=== PATIENT | female | born 1975 | race Caucasian/White ===

== ENCOUNTER 2025-03-09 02:08 | Inpatient (IN) | payer OTHER, SELFPAY ==
[2025-03-08] VITALS (7 sets, daily range): BP systolic 107–154; BP diastolic 70–99; BMI 23.2
[2025-03-08 18:12] LABS: Urine Albumin Negative (Neg - Trace); Urine Bilirubin Negative (Negative); Urine Character Clear (Clear); Urine Color Yellow; Urine Glucose Negative (Negative); Urine Ketone 2+ (Negative); Urine Leukocyte Negative (Negative); Urine Nitrite Negative (Negative); Urine Occult Blood 4+ (Negative); Urine Urobilinogen Negative (Neg - 1+)
[2025-03-08 18:30] LABS: Urine Bacteria Moderate (Negative); Urine Red Blood Cell 0-2 /HPF (0-2)
[2025-03-08 19:05] LABS: % Basophils 0.3 % (0-2); % Immature Granulocytes 0.3 % (0-0.5); % Lymphocytes 16.1 % (20.5-51.1); % Monocytes 6.2 % (1.7-9.3); % Neutrophils 77.1 % (42.2-75.2); Absolute Lymphocytes 1.7 10^3/uL (1.2-3.4); Absolute Monocytes 0.7 10^3/uL (0.1-0.6); Absolute Neutrophils 8.2 10^3/uL (1.4-6.5); Hematocrit 39.7 % (37.0-47.0); Hemoglobin 13.2 g/dL (12.0-16.0); Mean Corp Hgb Conc. 33.2 g/dL (33.0-37.0); Mean Corpuscular Hgb 27.1 pg (27.0-31.0); Mean Corpuscular Volume 81.5 fL (81.0-99.0); Mean Platelet Volume 8.2 fL (7.4-10.4); Nucleated Red Blood Cells % 0 %; Platelet Count 397 10^3/uL (130-400); Red Blood Cell Count 4.87 10^6/uL (4.20-5.40); Red Cell Dist. Width 12.5 % (11.5-14.5); White Blood Cell Count 10.7 10^3/uL (4.8-10.8)
[2025-03-08 19:14] LABS: Erythrocyte Sed Rate 19 mm/hour (0-20); HCG, Serum Qualitative Screen Negative
[2025-03-08 19:16] LABS: Lactic Acid 0.7 mmol/L (0.7-2.0)
[2025-03-08 19:24] LABS: ALT (SGPT) 34 U/L (0-35); AST (SGOT) 26 U/L (14-36); Albumin 3.8 g/dl (3.5-5.0); Alkaline Phosphatase 75 U/L (38-126); Blood Urea Nitrogen 8 mg/dl (7-17); Calcium 9.3 mg/dl (8.4-10.2); Carbon Dioxide 26 mmol/L (22-30); Chloride 107 mmol/L (98-107); Glucose 95 mg/dl (70-99); Lipase 75 U/L (23-300); Sodium 139 mmol/L (135-145); Total Bilirubin 0.3 mg/dl (0.2-1.3); Total Protein 6.9 g/dl (6.3-8.2); eGFR > 60.00
[2025-03-08] MEDS: ZOFRAN 4 MG IV (19:29)
[2025-03-08] MEDS: NSS 1000 IV (19:29)
--- NOTE | 2025-03-08 20:21 | ED.GENMED ---
History of Present Illness
General
Chief Complaint: Abdominal Pain
Source: patient
Exam Limitations: none
Time Seen by Provider: 03/08/25 18:42
Nursing documentation reviewed up to this point in time: agreed with
History of Present Illness
History of Present Illness:
Patient is a 49-year-old female with history of Crohn's disease presenting to the emergency department for evaluation of upper abdominal pain and nausea. Patient reports recent Crohn's flare starting back in December. She was started on 40 mg of
prednisone which she stopped at the end of January. Starting about 1 week ago she describes a bloating sensation in her upper abdomen and intermittent nausea. Today�she reports significant nausea after drinking any liquids prompting visit to the
emergency department.
Patient denies any fevers or vomiting. She has had some intermittent loose stools though denies any bloody stools. She denies any lower abdominal discomfort. She denies any urinary symptoms. She has absolutely no chest pain or shortness of
breath. No lightheadedness/dizziness.
Patient reports approximately once every 2 years she has a Crohn's flare however this feels different than typical flares. She has been taking Skyrizi recently although is currently planning a medication adjustment.
Patient receives the majority of her GI care through [facility]. She did recently see a new GI specialist for second opinion.
She had a right sided colectomy many years ago at [facility]. She has a remote history of an appendectomy and cholecystectomy.
Past History
Past History
ED Past Medical History: Other (gallstone, ulcerative colitis)
ED Past Surgical History: None
Social History
Tobacco: Non-smoker
Alcohol: None
Drug: None
Living: with family
Review of Systems
Review of Systems
Allergies reviewed?: Yes
All Other Systems: ROS reviewed and negative except as documented in HPI and ROS
Phy Exam
Physical Exam
Physical Exam:
Vitals: Patient's vital signs are stable. Afebrile
General: Patient is well appearing, no acute distress. Nontoxic appearing
Skin: Warm and dry, no rashes or lesions
Head: Normocephalic, atraumatic
Eyes: Sclera nonicteric. EOMs intact. No nystagmus.
Throat: Protecting airway
Neck: Normal ROM, no cervical spine tenderness, no meningismus
Cardiac: Regular rate and rhythm, no murmurs.
Pulm: Normal respiratory effort, no wheezes, rales, rhonchi heard on exam
.
Abdomen: Abdomen soft. Mild tenderness in epigastric region without rebound tenderness or guarding. Negative Ashley sign. No reproducible tenderness in lower abdomen.
Extremities: No evidence of cyanosis or edema. Palpable DP pulses bilaterally
Neuro: AAOx3. Grossly intact.
Psychiatric: Normal affect.
Course
Orders/Labs/Results
Orders:
Orders
03/08/25 17:53
Test Result ONCE
03/08/25 18:05
Urine Culture Reflexed from UA [Urinalysis Reflex To Culture] Urgent
Date Specimen was Collected: 03/08/25
Time Specimen was Collected: 17:53
Urine Microscopic Reflex Cult Urgent
Urine Culture Urgent
JEREMIAS Source: U
Specimen Description:
Date Specimen was Collected: 03/08/25
Time Specimen was Collected: 17:53
03/08/25 18:56
C-Reactive Protein Urgent
Complete Blood Count/With Diff Urgent
Comprehensive Metabolic Panel Urgent
Erythrocyte Sed Rate Urgent
HCG, Serum Qualitative Screen Urgent
Lactic Acid Urgent
Lipase Urgent
03/08/25 19:14
0.9% Sodium Chloride 1000 ml [Nss] 1,000 ml IV BOLUS
Ondansetron Injectable [Zofran] 4 mg IV NOW STA
03/08/25 20:21
Acetaminophen [Tylenol] 650 mg PO NOW STA
Mag Hydrox/Al Hydrox/Simeth [Maalox] 30 ml Phenobarb/Hyoscy/Atropine/Scop [] 10 ml Viscous Lidocaine 2% [Xylocaine Viscous Cup] 10 ml PO NOW
03/08/25 20:27
CT Abd/pel W Iv And Oral Contr Urgent
Comment: hx R colectomy
Reason For Exam: Upper abdominal pain, bloating, nausea
Iohexol [Omnipaque] See Protocol PO NOW STA
03/08/25 20:35
Mag Hydrox/Al Hydrox/Simeth [Maalox] 30 ml .ROUTE .STK-MED ONE
Phenobarb/Hyoscy/Atropine/Scop [] 10 ml .ROUTE .STK-MED ONE
Viscous Lidocaine 2% [Xylocaine Viscous Cup] 15 ml .ROUTE .STK-MED ONE
03/08/25 23:51
PTT Urgent
03/09/25 00:02
Heparin 5,400 units IV NOW STA
Nursing to Place Non Medication Order As Directed
Physician Order: PTT 6 hours after initial start of Heparin infusion
Above order entered?: Yes
03/09/25 00:15
Heparin [id number] Units/250 ml 25,000 units in 250 ml IV PER PROTOCOL
Weight to be used for heparin protocol in kilograms (kg):: 67.2
Protocol:: DVT/PE
PTT Goal Range to be used:: PTT 73 to 111 seconds
Order type:: Initial
INITIAL Infusion Dose (UNITS/KG/hr) & then follow protocol:: 18 units/kg/hr
Infusion Dose in UNITS/hr & then follow protocol (UNITS/hr):: 1,200
INFUSION RATE in mL/hr & then follow protocol (mL/hr):: 12
For DVT/PE algorithm, re-bolus for low PTT?: Yes
PTT less than or equal to 64 seconds:: Re-bolus 80 units/kg (max 10,000units). Increase by 300 units/hr
(+ 3mL/hr)
PTT 64.1 to 72.9 seconds:: Re-bolus 40 units/kg (max 5,000 units). Increase by 100 units/hr
(+ 1mL/hr)
PTT 73 to 111 seconds:: Target Range. No change in rate.
PTT 111.1 to 130.9 seconds:: Decrease rate by 100 units/hr (- 1 mL/hr)
PTT 131 to 199.9 seconds:: HOLD for 1 hr. Then decrease by 200 units/hr (- 2mL/hr)
PTT greater than or equal to 200 seconds:: HOLD for 2 hrs & Notify Provider. Then decrease by 300 units/hr
(- 3mL/hr)
Lab follow-up:: Each change, PTT q6h until 2 consecutive are therapeutic. Then
PTT daily.
03/09/25 00:29
Heparin 2,700 units IV PRN PRN
Heparin 5,400 units IV PRN PRN
03/09/25 00:57
Morphine Sulfate 4 mg IV NOW STA
Ondansetron Injectable [Zofran] 4 mg IV NOW STA
03/09/25 01:00
Flush (0.9% Sodium Chloride) [Flush (Nss)] See Dose Instructions IV PER PROTOCOL
03/09/25 01:59
Admit/Transfer Patient As Directed
Co-Sign Provider:
Level of Care: Inpatient admission
Assign to:: Medical/Surgical
Physician / Group: muriel
Diagnosis: superior mesenteric vein thrombosis
Reason for Hospitalization: SMV thrombosis
Expected length of stay greater than two midnights?: Yes
ELOS- Estimated Length of Stay in days: 2
I certify the patient meets the requirements for IP care: Yes
PRN Pain Medication Management As Directed
May give lesser potent ordered pain med per pt: Yes
preference::
Protocol:: Medication orders for pain may be administered in a
manner that supports deferring to patient preference
when the pt is:
- Requesting an ordered lesser potent pain medication.
Least to most potent pain medications are defined
as: acetaminophen < NSAID < tramadol < opioids
(morphine, oxycodone, hydromorphone).
- Requesting a lesser dose of the same medication IF
ORDERED.
- Requesting a less intrusive route of administration
if both routes are prescribed by the provider (PO <
IV).
03/09/25 02:00
Code Status As Directed
Resuscitation Status: Full Code
03/09/25 02:19
Acetaminophen [Tylenol] 650 mg PO Q4HPRN PRN
Dextrose 5%/Lactringers 500 ml [D5lr] 500 ml IV 100 mls/hr
HYDROmorphone [Dilaudid] 0.5 mg IV Q4HPRN PRN
Ondansetron Injectable [Zofran] 4 mg IV Q6HPRN PRN
Oxycodone [Roxicodone] 5 mg PO Q4HPRN PRN
03/09/25 02:19
Consult Notification Routine
Specialty to Notify: Gastroenterology
Date consulting provider notified: 03/09/25
Time consulting provider notified: 07:29
Notified:: Provider
Comment: Dr. Donaldson notified via tiger text
Consult Notification Routine
Specialty to Notify: Hematology
Date consulting provider notified: 03/09/25
Time consulting provider notified: 07:59
Notified:: Provider
Comment: Dr. Robledo notified via tiger text
GASTROINTESTINAL CONSULT Routine
Consulting Provider: Rubio Donaldson
Was physician already notified: No
Reason for consult: SMV thrombosis
HEMATOLOGY CONSULT Routine
Consulting Provider: Dmitry Nelson
Was physician already notified: No
Reason for consult: SMV thrombus, crohns w/ recent exac s/p pred. Was on Skirizi
VTE Contraindication Routine
VTE Mechanical Device Contraindication: Medical Contraindication
Pharmocologic Contraindication: Medical Contraindication
Heparin Protocol- PTT Orders As Directed
PTT per Heparin protocol: -Obtain CBC and baseline PTT - if not already collected.
-Obtain PTT 6 hours from start of infusion. Then, every 6 hours until 2 consecutive
PTT's are therapeutic. Then, PTT Daily.
-With each rate change, obtain PTT every 6 hours until 2 consecutive PTT's are
therapeutic. Then, PTT Daily.
Activity As Directed
Activity Level: With Assistance
Notify MD As Directed
Notify physician if: PTT is greater than or equal to 200.
Vital Signs As Directed
Frequency: Per unit guidelines
03/09/25 Breakfast
Clear Liquid
At Your Request: Full Participation
03/09/25 06:56
Basic Metabolic Panel IN AM
Magnesium IN AM
PTT Urgent
03/11/25 06:00
Complete Blood Count/No Diff Q2D
Comment: notify provider: Platelet count < 130,000 or decrease by 50% from baseline
03/13/25 06:00
Complete Blood Count/No Diff Q2D
Comment: notify provider: Platelet count < 130,000 or decrease by 50% from baseline
03/15/25 06:00
Complete Blood Count/No Diff Q2D
Comment: notify provider: Platelet count < 130,000 or decrease by 50% from baseline
03/17/25 06:00
Complete Blood Count/No Diff Q2D
Comment: notify provider: Platelet count < 130,000 or decrease by 50% from baseline
03/19/25 06:00
Complete Blood Count/No Diff Q2D
Comment: notify provider: Platelet count < 130,000 or decrease by 50% from baseline
03/21/25 06:00
Complete Blood Count/No Diff Q2D
Comment: notify provider: Platelet count < 130,000 or decrease by 50% from baseline
03/23/25 06:00
Complete Blood Count/No Diff Q2D
Comment: notify provider: Platelet count < 130,000 or decrease by 50% from baseline
03/25/25 06:00
Complete Blood Count/No Diff Q2D
Comment: notify provider: Platelet count < 130,000 or decrease by 50% from baseline
Abnormal Lab Results
03/08/25 03/08/25
18:05 18:56
Absolute Neuts (auto) 8.2 H 10^3/uL
(1.4-6.5)
Absolute Monos (auto) 0.7 H 10^3/uL
(0.1-0.6)
Neutrophils % 77.1 H %
(42.2-75.2)
Lymphocytes % 16.1 L %
(20.5-51.1)
Urine Ketones 2+ A
(Negative)
Ur Occult Blood Reflex 4+ A
(Negative)
Urine Bacteria (Reflex) Moderate A
(Negative)
03/08/25 18:56
03/08/25 18:56
Vital Signs
Initial and Last Documented VS:
Initial Vital Signs
Temp Pulse Resp BP Pulse Ox
98.2 F 81 20 154/99 98
03/08/25 17:49 03/08/25 17:49 03/08/25 17:49 03/08/25 17:49 03/08/25 17:49
Last Documented Vital Signs
Temp Pulse Resp BP Pulse Ox
98.1 F 74 17 108/69 97
03/09/25 07:34 03/09/25 07:34 03/09/25 07:34 03/09/25 07:34 03/09/25 07:34
MDM/Problems Addressed
Differential Diagnosis Includes:
Not limited to: acute crohns flare, gastritis, GERD, pancreatitis, etc
MDM/Problems Addressed:
49 year-old female presenting with one week of vague abdominal discomfort associated with nausea, bloating. No fevers or vomiting. No bloody diarrhea. No chest pain or shortness of breath. Patiently currently on steroids for suspected Crohn�s flare.
However- she states it feels different that prior flares. Vital signs as above. Physical exam as above.
Basic labs including CBC, CMP, inflammatory markers, lactic acid sent in triage. All without any significant abnormality.
Given normal lab analysis and benign abdominal exam � very low suspicion for acute infectious abdominal process. Discussed holding CT scan given hx of multiple CT scans and radiation exposure, however after shared decision-making w/ patient and her
will proceed with CT scan abd/pelvis with IV in oral contrast as patient feels the symptoms are not typical of a Crohns flare. Will give IV fluids, Tylenol, and G.I. cocktail.
Update: � CT scan reveals superior mesenteric venous thrombosis. Discussed with Dr. Mendoza Ledesma. Patient will require admission for IV heparin and further evaluation. Will likely need thrombotic workup w/ hematology. Discussed with patient and her
at length who are comfortable with plan. IV heparin initiated in ED. Patient accepted to hospitalist service in stable condition.
Chronic conditions affecting care:
Crohs Disease
Acute Exacerbation and/or Progression of Chronic Illness:
Superior mesenteric thrombosis
*Radiology
Radiology exam reviewed: radiology read reviewed
*Pulse Oximetry
Patient hypoxic: no
*EKG
Interpreted by ED Provider?: NA
*Plating Engineer Interpretation
Rate: Plating Engineer- N/A
*Critical Care Note
Total Time (30-74mins, 75-104mins- exclusive of procedures): Not Applicable
Patient Management
Discussion with other providers: Integrity Analyst (Discussed w/ gastroenterology)
Escalation/DeEscalation of care consider admission/obs:
Admit for IV heparin, GI and hematology consult
ED Attending Note
-
Portions of this chart may have been created with voice recognition software.� Occasional wrong word or��sound alike� substitutions may have occurred due to the inherent limitations of voice recognition software.
Discharge Plan
Departure
Patient Disposition: Admit
Date of Disposition: 03/09/25
Time of Disposition: 00:04
Presentation/result/management discussed w/ accepting MD/DO: Hospitalist
Discharge Problem:
Superior mesenteric vein thrombosis
Interventions
Interventions:
*Risk Screen - Suicide Last Done: 03/08/25 23:07
*General Assessment Last Done: 03/08/25 17:49
*Neglect/Abuse Screening Last Done: 03/08/25 23:07
*ED- Fall Risk Assessment Last Done: 03/08/25 19:37
*ED COVID-19 Vaccine History Last Done: 03/08/25 19:37
*Nursing Disposition Last Done: 03/09/25 03:15
PF-Tmyujs-Eataqjlrnb Assessment Last Done: 03/09/25 00:15
Discharge Date and Time
Discharge Date/Time: 03/09/25 03:17
[2025-03-08] MEDS: TYLENOL 650 MG PO (20:39)
[2025-03-08] MEDS: OMNIPAQUE 50 ML PO (20:40)
[2025-03-08] MEDS: MAALOX 50 PO (20:41)
[2025-03-09 00:29] LABS: APTT 27.8 Sec (23.4-35.0)
[2025-03-09] MEDS: HEPARIN 5400 UNITS IV ×2 (00:37→14:20)
[2025-03-09] MEDS: HEPARIN 25000 UNITS/250 ML IV ×2 (00:38→21:40)
--- NOTE | 2025-03-09 01:29 | HPS.HSE ---
Family Physician
-
Family Physician: Braulio Cox
Chief Complaint
-
Abdominal pain
History of Present Illness
This is a 49-year-old female with past medical history significant for Crohn's disease on Skyrizi presenting to the emergency department with abdominal pain and nausea since last Thursday.
Patient reports that she has had a flare of oral disease since December. She had underwent multiple blood testing and was diagnosed with Crohn's flare. At the time she was on Skyrizi. She was placed on prednisone and she completed treatment at the
end of January. She felt somewhat improved but still have mild symptoms which at the time included abdominal pain bloating cramps and intermittent diarrhea. She saw pipe insulator helper again we recommended initiating alternative treatment
medications. Started on another prednisone taper. Symptoms worsened since Thursday. She now has more of a nausea, intolerance to p.o. and a poor appetite. She was concerned about a possible complication of the Crohn's colitis so she came to the
emergency department for evaluation.
The patient has had a prior cholecystectomy appendectomy and colectomy.
In the emergency department she was afebrile, blood pressure 107/70 with a pulse of 76 and a respiratory rate of 18. CBC was unremarkable and electrolytes normal. BUN/creatinine were normal and glucose normal. UA was unremarkable.
CT of the abdomen pelvis showed superior mesenteric vein thrombosis, mild colitis of the transverse and descending colon and a mild diverticulosis.
Medical History
Past Medical History
Past Medical History: Reports Other (Crohn's colitis)
Past Surgical History: Reports Appendectomy and Cholecystectomy
Social History
Tobacco: Non-smoker
Alcohol: None
Drug: None
Family History
Family History: Not pertinent
Allergies / Home Medications
Allergies reflects when Allergies were last updated in [facility].
Home Medications with original date entered in [facility]
Allergy/Medication List:
Allergies
Allergy/AdvReac Type Severity Reaction Status Date / Time
amoxicillin trihydrate Allergy Unknown Verified 03/08/25 17:48
[From Augmentin]
balsalazide disodium Allergy Unknown Verified 03/08/25 17:48
[From Colazal]
cefaclor [From Ceclor] Allergy Unknown Verified 03/08/25 17:48
hydrocortisone Allergy Unknown Verified 03/08/25 17:48
potassium clavulanate Allergy Unknown Verified 03/08/25 17:48
[From Augmentin]
Home Medications
Vitamin C PO DAILY 03/09/25
Vitamin D (with calcium) PO DAILY 03/09/25
famotidine 20 mg tablet (Pepcid) 20 mg PO DAILY 03/09/25
folic acid 1 tab PO DAILY 03/09/25
multivitamin 1 tab PO DAILY 03/09/25
Review of Systems
-
Constitutional: Reports No Symptoms
EENT: Reports No Symptoms
Respiratory: Reports No Symptoms
Cardiac: Reports No Symptoms
Abdomen/GI: Reports Abdominal Pain and Nausea
: Reports No Symptoms
Musculoskeletal: Reports No Symptoms
Skin: Reports No Symptoms
Neurological: Reports No Symptoms
Endocrine: Reports No Symptoms
Hematologic/Lymphatic: Reports No Symptoms
Psych: Reports No Symptoms
Physical Exam
Vital Signs
Vital Signs
Temp Pulse Resp BP Pulse Ox
98.2 F 62 18 107/70 97
03/08/25 17:49 03/08/25 23:10 03/08/25 23:10 03/08/25 23:10 03/08/25 23:10
Physical Exam
General: Well Developed, Well Nourished and No Apparent Distress
HEENT: NormoCephalic, Moist mucous membranes and Atraumatic
Respiratory: Clear
Cardiac: S1/S2 and Regular Rhythm; No Murmur or Rub
GI: Soft, Non Tender, Non Distended and Normal Bowel Sounds; No Organomegaly
Rectal: Deferred by Provider
Musculoskeletal: No Clubbing, No Cyanosis and No Edema
Skin: No Rash
Neuro: Nonfocal/grossly intact
Laboratory Results
-
03/08/25 18:56
03/08/25 18:56
Laboratory Results
APTT 27.8 Sec (23.4-35.0) 03/09/25 00:07
Lactic Acid 0.7 mmol/L (0.7-2.0) 03/08/25 18:56
Total Bilirubin 0.3 mg/dl (0.2-1.3) 03/08/25 18:56
AST 26 U/L (14-36) 03/08/25 18:56
ALT 34 U/L (0-35) 03/08/25 18:56
Alkaline Phosphatase 75 U/L (38-126) 03/08/25 18:56
Lipase 75 U/L (23-300) 03/08/25 18:56
Data Reviewed
-
CT Scan: Report Reviewed by me
Lab Data: Labs Reviewed by me
Old Records: Reviewed
Impression/Plan
-
IMPRESSION:
For 49-year-old with Crohn's colitis coming in with abdominal pain and nausea and found to have superior mesenteric vein thrombosis. No evidence of any infarction. She is well-appearing, hemodynamically stable and nontoxic. Lactic acid was not
sent. She has no prior history of clotting disorder. She denies any family history of clotting disorder. Normal lipase and lfts.
PLAN:
1. SMV thrombosis
- admit to med/surg
- clear liquid diet for now
- heparin gtt, when stable can be transition to DOAC for at least 3 months to 56 months
- no signs of infarction, check lactic acid, f/u am cbc, serial examinations possible f/u CT in 48 hours
- iv fluids and pain control. No obstruction, no indication for decompression
- will need hypercoagulable w/u, hematology consult
- gastroenterology consultation
2. Colitis - mild colitis noted on CT
- continue prednisone taper
DVT PPX - on heparin gtt
Code status - full code
[2025-03-09] MEDS: MORPHINE SULFATE 4 MG IV (01:37)
[2025-03-09] MEDS: ZOFRAN 4 MG IV (01:37)
[2025-03-09] MEDS: D5LR 500 IV (02:47)
[2025-03-09 03:25] VITALS: BMI 24.3
[2025-03-09 03:35] VITALS: BP 142/88
[2025-03-09 07:23] LABS: APTT 117.3 Sec (23.4-35.0)
[2025-03-09 07:34] VITALS: BP 108/69
[2025-03-09 07:42] LABS: Blood Urea Nitrogen 9 mg/dl (7-17); Calcium 8.3 mg/dl (8.4-10.2); Carbon Dioxide 27 mmol/L (22-30); Chloride 110 mmol/L (98-107); Estimated Creatinine Clearance 85 ml/min; Glucose 84 mg/dl (70-99); Magnesium 2.3 mg/dl (1.6-2.3); Potassium 3.8 mmol/L (3.5-5.1); Sodium 141 mmol/L (135-145); eGFR > 60.00
[2025-03-09] MEDS: D5LR IV (08:01)
--- NOTE | 2025-03-09 08:04 | W.PN.HOSP.TC ---
Today's Communication/Plan
-
See PN
Assessment / Plan
Assessment / Plan
49yo F with PMHx of Crohns s/p resection and anastomosis came with 1 week of worsening bloating, epigastric pain and mainly nausea. Was restarted on prednisone taper 1 week before admission due to Crrohns flare. CT abd showed mild diffuse
circumferential wall thickening of the transverse colon and proximal mid descending colon suggesting colitis and thrombus formation in the superior mesenteric vein
A/P:
#Mesenteric vein thrombosis
most liekly 2/2 Crohns colitis
Patient was on ustekinumab, receved last dose at the end of January, was also considered for Infliximab
Heparin drip with eventual DOAC
Hematology cosnult
COnt Prednisone taper, add PPI
GI consult
Advance diet as tolerated
#Diverticolosis w/o diverticulitis
High fiber diet
#DJD
tylenol
PT/OT
DVT ppx on hep drip
Full code
I have spent at least 56 min reviewing chart, test results, communication with consulktants and providing direct patient care
Anticipated Discharge: 24 - 48 hours
Subjective/Interval History
-
Date of Service: March 09, 2025
Objective Data
-
Labs:
Laboratory Results
03/09/25 03/09/25 03/09/25
00:02 00:07 06:56
APTT Cancelled 27.8 117.3 H
Sodium 141
Potassium 3.8
Chloride 110 H
Carbon Dioxide 27
BUN 9
Creatinine 0.8
Glucose 84
Calcium 8.3 L
03/09/25
13:32
APTT Pending
Sodium
Potassium
Chloride
Carbon Dioxide
BUN
Creatinine
Glucose
Calcium
Vital Signs:
Vital Signs
Temp Pulse Resp BP Pulse Ox
98.1 F 74 17 108/69 97
03/09/25 07:34 03/09/25 07:34 03/09/25 07:34 03/09/25 07:34 03/09/25 07:34
I&O
03/08/25 03/09/25 03/10/25
06:59 06:59 06:59
Intake Total 880 / 880
Balance 880 / 880
Review of Systems
-
History Source: Patient
All other systems: Reviewed and negative
Abdomen/GI: Reports Bloated
Physical Exam
-
General: No Apparent Distress and Comfortable
GI: Soft, Nontender, Nondistended and Normal Bowel Sounds
Neuro: Awake, Alert, Oriented and AO x 3
Psych: Calm
[2025-03-09] MEDS: DELTASONE 35 MG PO (08:43)
[2025-03-09] MEDS: PROTONIX IV 40 MG IV (08:43)
[2025-03-09] MEDS: NSS (PRESERVATIVE FREE) 10 ML IV (08:43)
--- NOTE | 2025-03-09 09:03 | PTCARENOTE ---
Per [place] in infection prevention, patient okay to be on standard precautions.
--- NOTE | 2025-03-09 10:56 | CON.ONC ---
Addendum entered and electronically signed by Hans Robledo DO 03/09/25 11:10:
Date of consultation 03/09/2025
Original Note:
Impression
Impression
Exacerbation of Crohn's colitis
Superior mesenteric vein thrombosis
Plan
Plan
Crohn's is associated with increased risk of thrombus
Evaluate with baseline D-dimer and limited thrombophilia assessment for antiphospholipid antibodies
Heparin to DOAC acceptable as initial therapeutic intervention
Monitor CBC
Patient History
History of Present Illness
49yo F with PMHx of Crohns recently discontinued Skyrizi due to increasing flare frequency. She was placed on a course of prednisone which she discontinued in January outpatient gastroenterology assessing recommendations for second line therapy.
Patient has had fairly severe cramping over the past 1 to 2 weeks which she attributed to an exacerbation of Crohn's. She restarted prednisone with no improvement in symptoms. She came to the emergency room for further evaluation at which time a
CT scan showed mild diffuse circumferential wall thickening of the transverse colon and proximal colon suggesting colitis and thrombus formation in the superior mesenteric vein. Oncology has been asked to evaluate additional thrombo for like risk.
Crohn's disease is clearly an increased risk for thrombosis.
Past-Medical/Surgical History
Past Medical History
Past Medical History:Crohn's colitis
Past Surgical History: Appendectomy and Cholecystectomy
Social History
Tobacco: Non-smoker
Alcohol: None
Drug: None
Family History
Family History: Not pertinent
Allergies / Home Medications
Patient Medication
�Medication �Instructions �Recorded �Confirmed �Last Taken �Type
Vitamin C 250 mcg PO DAILY 03/09/25 03/09/25 03/08/25 History
Vitamin D (with calcium) 25 mcg PO DAILY 03/09/25 03/09/25 03/08/25 History
famotidine 20 mg tablet (Pepcid) 20 mg PO DAILY 03/09/25 03/09/25 Unknown History
folic acid 1 tab PO DAILY 03/09/25 03/09/25 03/08/25 History
multivitamin 1 tab PO DAILY 03/09/25 03/09/25 03/08/25 History
prednisone 35 mg PO DAILY 03/09/25 03/09/25 03/08/25 History
Active Medications
Generic Name Dose Route Start Last Admin
Trade Name Freq PRN Reason Stop Dose Admin
Acetaminophen 650 mg 03/09/25 02:19
Acetaminophen 325 Mg Tablet PO 04/06/25 02:18
Q4HPRN PRN
mild pain/CANTU/temp> 100.4F
Heparin Sodium 5,400 units 03/09/25 00:29
Heparin 80 Units/Kg Rebolus-Do Not Discard IV 04/06/25 00:28
PRN PRN
PTT < OR = 64 seconds
Heparin Sodium 2,700 units 03/09/25 00:29
Heparin 40 Units/Kg Rebolus-Do Not Discard IV 04/06/25 00:28
PRN PRN
PTT = 64.1 to 72.9 seconds
Hydromorphone HCl 0.5 mg 03/09/25 02:19
Hydromorphone 0.5 Mg/0.5 Ml Syringe IV 03/23/25 02:18
Q4HPRN PRN
severe pain
Heparin Sodium 25,000 units in 250 mls @ 0 mls/hr 03/09/25 00:15 03/09/25 00:38
Heparin 19785 Units/250 Ml IV 250 mls
PER PROTOCOL OUMAR Administration
Protocol
Per Protocol
Ondansetron HCl 4 mg 03/09/25 02:19
Ondansetron 4 Mg/2 Ml Vial IV 04/06/25 02:18
Q6HPRN PRN
nausea and vomiting
Oxycodone HCl 5 mg 03/09/25 02:19
Oxycodone 5 Mg Regular Release Tablet PO 03/23/25 02:18
Q4HPRN PRN
moderate pain
Pantoprazole Sodium 40 mg 03/09/25 09:00 03/09/25 08:43
Pantoprazole Sodium 40 Mg/10 Ml Vial IV 04/06/25 08:59 40 mg
DAILY OUMAR Administration
Prednisone 35 mg 03/09/25 08:00 03/09/25 08:43
Prednisone 10 Mg Tablet PO 03/12/25 08:01 35 mg
DAILY OUMAR Administration
Prednisone 30 mg 03/13/25 08:00
Prednisone 10 Mg Tablet PO 03/17/25 08:01
DAILY OUMAR
Prednisone 25 mg 03/18/25 08:00
Prednisone 20 Mg Tablet PO 03/22/25 08:01
DAILY OUMAR
Prednisone 20 mg 03/23/25 08:00
Prednisone 20 Mg Tablet PO 03/27/25 08:01
DAILY OUMAR
Prednisone 15 mg 03/28/25 08:00
Prednisone 5 Mg Tablet PO 04/01/25 08:01
DAILY OUMAR
Prednisone 10 mg 04/02/25 08:00
Prednisone 10 Mg Tablet PO 04/06/25 08:01
DAILY OUMAR
Prednisone 5 mg 04/07/25 08:00
Prednisone 5 Mg Tablet PO 04/11/25 08:01
DAILY OUMAR
Sodium Chloride 0 flush 03/09/25 01:00
Sodium Chloride 0.9% (Flush) Syringe IV 04/06/25 00:59
PER PROTOCOL OUMAR
Sodium Chloride 10 ml 03/09/25 09:00 03/09/25 08:43
Sodium Chloride 0.9% (Preservative Free) 10 Ml Vial IV 04/06/25 08:59 10 ml
DAILY OUMAR Administration
Review of Systems
-
Negative on 12 point review other than those symptoms reviewed in HPI
Physical Exam
-
General: Well Developed and Well Nourished
HEENT: Negative Jaundice
Cardiology: Normal Sinus Rhythm
Pulmonary: Clear
GI: Soft and Other (Tender)
Genito-Urinary: Negative Costovertebral Angle Tenderness
Musculoskeletal: No Clubbing, No Cyanosis and No Edema
Extremities: Pulses Present
Neurology: Non Focal and No Lateralizing Symptoms
Skin: Warm and Dry
Hematologic / Lymphatic: No Lymphadenopathy
Psych: Calm
Labs
Lab Results
WBC 10.7 10^3/uL (4.8-10.8) 03/08/25 18:56
RBC 4.87 10^6/uL (4.20-5.40) 03/08/25 18:56
Hgb 13.2 g/dL (12.0-16.0) 03/08/25 18:56
Hct 39.7 % (37.0-47.0) 03/08/25 18:56
MCV 81.5 fL (81.0-99.0) 03/08/25 18:56
MCH 27.1 pg (27.0-31.0) 03/08/25 18:56
MCHC 33.2 g/dL (33.0-37.0) 03/08/25 18:56
RDW 12.5 % (11.5-14.5) 03/08/25 18:56
Plt Count 397 10^3/uL (130-400) 03/08/25 18:56
MPV 8.2 fL (7.4-10.4) 03/08/25 18:56
Abs Immat Gran (auto) 0.0 10^3/uL (0-0.05) 03/08/25 18:56
Absolute Neuts (auto) 8.2 10^3/uL (1.4-6.5) H 03/08/25 18:56
Absolute Lymphs (auto) 1.7 10^3/uL (1.2-3.4) 03/08/25 18:56
Absolute Monos (auto) 0.7 10^3/uL (0.1-0.6) H 03/08/25 18:56
Absolute Eos (auto) 0.0 10^3/uL (0-0.7) 03/08/25 18:56
Absolute Basos (auto) 0.0 10^3/uL (0-0.2) 03/08/25 18:56
Immature Gran % 0.3 % (0-0.5) 03/08/25 18:56
Neutrophils % 77.1 % (42.2-75.2) H 03/08/25 18:56
Lymphocytes % 16.1 % (20.5-51.1) L 03/08/25 18:56
Monocytes % 6.2 % (1.7-9.3) 03/08/25 18:56
Eosinophils % 0.0 % (0-6) 03/08/25 18:56
Basophils % 0.3 % (0-2) 03/08/25 18:56
Creatinine 0.8 mg/dL (0.6-1.0) 03/09/25 06:56
Vital Signs
Vital Signs
Temp Pulse Resp BP Pulse Ox
98.1 F 74 17 108/69 97
03/09/25 07:34 03/09/25 07:34 03/09/25 07:34 03/09/25 07:34 03/09/25 07:34
--- NOTE | 2025-03-09 11:32 | CON.GI ---
Addendum entered and electronically signed by Rubio Donaldson MD 03/09/25 14:54:
I saw and examined the patient.
The STATEMENT SERVICES REPRESENTATIVE or PA's note was reviewed and I agree with the note.
Comment: 49yo female hx Crohns' disease dx'd over 20 years ago treated in past with remicade, christian mueller, currently on Skyrizi. Had ileocecectomy for low grade dysplasia in 2022. Last colonoscopy in May reportedly mild disease. Recently
began with Crohn's flare, fatigue, loose stools in December. She was started on prednisone and discussing switching to Rinvoq. She had another dose Skyrizi February 07. She did respond to prednisone 40mg tapering down to 10mg daily. Then last week 03/03
she developed acute onset upper abdominal pain. PCP increased prednisone back to 40mg daily which helped a little, but she still had abd discomfort prompting visit to ER. CT shows colitis in transverse, descending colon as well as SMV thrombosis.
She does not smoke, denies NSAIDs. Started on heparin gtt. She follows with Dr Washburn at [facility] and recently sought 2nd opinion with Dr Rubi at [facility] who also recommended Rinvoq, prior to SMV thrombosis this admission
REC:
Continue heparin gtt
Continue prednisone 35mg daily. If improving, can taper, but if not responding/improving, increase dose and consider IV steroids
Her SMV thrombosis could be due to Crohn's flare, which needs to be controlled
Will need to discuss new med to move on to after Skyrizi. Would avoid Rinvoq at this point given her thrombosis. She will discuss with Daija Washburn and Elicia
Abd exam benign, normal WBC, not acidotic. Can hold off on abx.
Will need repeat imaging to assess resolution of clot. Would repeat sooner if acute decompensation and involve colorectal surgery if concern for bowel ischemia
Check fecal calprotectin baseline and can follow if needed to assess inflammation
Original Note:
Consultation
-
Date/Time Consultation Requested: 03/09/25 [id number]
Date/Time Consultation Performed: 03/09/25 1130
Requesting Provider: conner Estrella MD
Performing Provider: ZELDA Maier, Rubio Donaldson MD
Reason for Consultation: hx crohns with SMV thrombosis
Medical History
Chief Complaint / HPI
Chief Complaint: abdominal pain
History of Present Illness:
Pt is a 49yo with hx prior appe, jerry, and long standing crohn' s disease. In review with patient she was diagnosed with crohns disease at age 25 with periodic hospitalization thought the years and steroid use. She believes it is primary colonic
disease but does recall hx MRE in past. In 2022 she had low grade dysplastic polyp with EMR resection with Dr. Aldrich followed with concern for stricture with balloon dilation then right colectomy 04/2023 at [facility]. She has been on
multiple medication in past including Asacol, Remicade (with development of antibodies) Humira, Stelara, and recent Skyrizi since 2022. She had recent discussion with Dr. Washburn her know GI and second opinion with Dr. Roblero at [facility] with plan
to stop Skyrizi and consider Entyvio or Rinvoq. She has steroid course in December til January then restart last week with band like abdominal pain and increased stool frequency. Pain progressed with noted increased nausea with eating and she present
to for evaluation. On admission she is noted with CT with mild colitis in transverse and descending colon long with SMV thrombosis and started on Heparin. Asked to see for hx crohns.
She denies dysphagia, GERD, vomiting, or rectal bleeding. Pt admits to 3-4 loose stools daily. Last colonoscopy May 2023 with mild disease. No visual problems, joint pain, or rashes.
Past Medical History
Past Medical History: Other (crohn's disease, low grade dysplastic polyp with EMR resection with Dr. Aldrich 2022 followed with concern for stricture with balloon dilation then right colectomy)
Past Surgical History: Appendectomy, Bowel Resection (right colon resection) and Cholecystectomy
Social History
Tobacco: Non-Smoker
Alcohol: None
Drug: None
Personal:
Living: With Family
Employment: Employed
Family History
Family History: Other (sister with crohns disease )
Allergies / Home Medications
Allergy/AdvReac Type Severity Reaction Status Date / Time
amoxicillin trihydrate Allergy Unknown Verified 03/08/25 17:48
[From Augmentin]
balsalazide disodium Allergy Unknown Verified 03/08/25 17:48
[From Colazal]
cefaclor [From Ceclor] Allergy Unknown Verified 03/08/25 17:48
hydrocortisone Allergy Unknown Verified 03/08/25 17:48
potassium clavulanate Allergy Unknown Verified 03/08/25 17:48
[From Augmentin]
�Medication �Instructions �Recorded
Vitamin C 250 mcg PO DAILY 03/09/25
Vitamin D (with calcium) 25 mcg PO DAILY 03/09/25
famotidine 20 mg tablet (Pepcid) 20 mg PO DAILY 03/09/25
folic acid 1 tab PO DAILY 03/09/25
multivitamin 1 tab PO DAILY 03/09/25
prednisone 35 mg PO DAILY 03/09/25
Review of Systems
-
History Source: Patient and Family
Constitutional: Reports No Symptoms
EENT: Reports No Symptoms
Respiratory: Reports No Symptoms
Abdomen/GI: Reports Abdominal Pain, Nausea and Diarrhea
: Reports No Symptoms
Musculoskeletal: Reports No Symptoms
Skin: Reports No Symptoms
Neurological: Reports No Symptoms
Endocrine: Reports No Symptoms
Hematologic/Lymphatic: Reports No Symptoms
Vital Signs
Temp Pulse Resp BP Pulse Ox
98.1 F 74 17 108/69 97
03/09/25 07:34 03/09/25 07:34 03/09/25 07:34 03/09/25 07:34 03/09/25 07:34
Physical Exam
Exam
General: Well Developed, Well Nourished and No Apparent Distress
HEENT: Normocephalic and Anicteric
Respiratory: Clear
Cardiac: Regular Rhythm
GI: Soft, Non Distended and Tender (mid abdomen )
Musculoskeletal: No Clubbing and No Cyanosis
Skin: Warm and Dry
Neuro: Awake, Alert and AO x 3
Psych: Calm
Results
WBC 10.7 10^3/uL (4.8-10.8) 03/08/25 18:56
Hgb 13.2 g/dL (12.0-16.0) 03/08/25 18:56
Hct 39.7 % (37.0-47.0) 03/08/25 18:56
MCV 81.5 fL (81.0-99.0) 03/08/25 18:56
Plt Count 397 10^3/uL (130-400) 03/08/25 18:56
Absolute Neuts (auto) 8.2 10^3/uL (1.4-6.5) H 03/08/25 18:56
APTT 117.3 Sec (23.4-35.0) H 03/09/25 06:56
Sodium 141 mmol/L (135-145) 03/09/25 06:56
Potassium 3.8 mmol/L (3.5-5.1) 03/09/25 06:56
Chloride 110 mmol/L (98-107) H 03/09/25 06:56
Carbon Dioxide 27 mmol/L (22-30) 03/09/25 06:56
BUN 9 mg/dl (7-17) 03/09/25 06:56
Creatinine 0.8 mg/dL (0.6-1.0) 03/09/25 06:56
Calcium 8.3 mg/dl (8.4-10.2) L 03/09/25 06:56
Total Bilirubin 0.3 mg/dl (0.2-1.3) 03/08/25 18:56
AST 26 U/L (14-36) 03/08/25 18:56
ALT 34 U/L (0-35) 03/08/25 18:56
Alkaline Phosphatase 75 U/L (38-126) 03/08/25 18:56
Lipase 75 U/L (23-300) 03/08/25 18:56
Diagnostic Image Results:
03/08/25 CT Abd/pel W Iv And Oral Contr
IMPRESSION: Superior mesenteric vein thrombosis.
Mild colitis of the transverse and descending colon
Mild diverticulosis.
Prior GI Procedures:
Colonoscopy: 2023 [place] recall mild disease
Assessment / Plan
-
Pt is a 49yo with hx prior appe, jerry, and long standing crohn' s disease. In review with patient she was diagnosed with crohns disease at age 25 with periodic hospitalization thought the years and steroid use. She believes it is primary colonic
disease but does recall hx MRE in past. In 2022 she had low grade dysplastic polyp with EMR resection with Dr. Aldrich followed with concern for stricture with balloon dilation then right colectomy 04/2023 at [facility]. She has been on
multiple medication in past including Asacol, Remicade (with development of antibodies) Humira, Stelara, and recent Skyrizi since 2022. She had recent discussion with Dr. Washburn her know GI and second opinion with Dr. Roblero at [facility] with plan
to stop Skyrizi and consider Entyvio or Rinvoq. She has steroid course in December then restart last week with band like abdominal pain and increased stool frequency. Pain progressed with noted increased nausea with eating and she present
to for evaluation. On admission she is noted with CT with mild colitis in transverse and descending colon long with SMV thrombosis and started on Heparin. Asked to see for hx crohns.
-SMV thrombosis
-CT with transverse and descending colon
-abdominal pain and nausea on admission
-long standing crohns disease
-recent flare with steroids and consider change in therapy
-hx low grade dysplastic polyp with EMR resection with Dr. Aldrich followed with concern for stricture with balloon dilation then right colectomy 04/2023
-prior appe and jerry
PLAN:
etiology of abdominal pain and nausea with eating related to SMV thrombosis vs crohns flare vs other
current heparin gtt
cont prednisone taper as was on prior to admission
cont PPI with prednisone use
hematology eval to underlying clotting issue vs thrombosis in setting of active IBD
pt was consider Rinvoq but would hold with risk of thrombosis with use-- she has already reviewed with Dr. Roblero for this and now considering Entyvio
will review with Dr. Donaldson need for antibiotics and pt also asking about EGD with nausea but currently on new anticoagulation since admission would consider OP testing if symptoms persist
will need OP follow up with Dr. Roblero and Dr. Washburn along with hematology
I did discuss with patient and family need for close follow of hbg with new anticoagulation in setting of crohn-- hbg normal on admission without complaints of bloody stools
-
-
Thank you for consultation and allowing me to participate in the patient's care. Please call the construction director GI physician during the after hours with any questions or concerns.
[2025-03-09 14:05] LABS: APTT 60.9 Sec (23.4-35.0)
[2025-03-09 15:20] VITALS: BP 113/76
--- NOTE | 2025-03-09 16:45 | CM ---
manager cardiac cath reviewed patient's chart and met with patient and patient lives with her spouse and 2 children in a multilevel home, patient is independent with adl's and ambulation, no dme, patient drives.
PCP: Dr. Braulio Cox
Pharmacy [facility]
Plan; Home no needs.
[2025-03-09 20:55] LABS: APTT 128.2 Sec (23.4-35.0)
[2025-03-09 21:01] LABS: Erythrocyte Sed Rate 27 mm/hour (0-20)
[2025-03-09 23:03] VITALS: BP 106/68
[2025-03-10 04:14] LABS: APTT 125.5 Sec (23.4-35.0)
[2025-03-10] MEDS: DELTASONE 35 MG PO (09:10)
[2025-03-10] MEDS: PROTONIX IV 40 MG IV (09:12)
[2025-03-10] MEDS: NSS (PRESERVATIVE FREE) 10 ML IV (09:12)
--- NOTE | 2025-03-10 10:47 | W.PN.ONC2 ---
Today's Communication / Plan
-
.
Impression
Impression
Exacerbation of Crohn's colitis
Superior mesenteric vein thrombosis
Plan
Plan
Crohn's is associated with increased risk of thrombus
Evaluate with baseline D-dimer and limited thrombophilia assessment for antiphospholipid antibodies
Heparin to DOAC acceptable as initial therapeutic intervention
Subjective/Objective
Subjective
denies bleeding
diarrhea
Vital Signs:
Vital Signs
Temp Pulse Resp BP Pulse Ox
97.8 F 79 14 106/68 96
03/09/25 23:03 03/09/25 23:03 03/09/25 23:03 03/09/25 23:03 03/09/25 23:03
Lab Results:
Laboratory Data
WBC 10.7 10^3/uL (4.8-10.8) 03/08/25 18:56
Hgb 13.2 g/dL (12.0-16.0) 03/08/25 18:56
Plt Count 397 10^3/uL (130-400) 03/08/25 18:56
APTT 125.5 Sec (23.4-35.0) H 03/10/25 03:49
eGFR > 60.00 03/09/25 06:56
Physical Exam
HEENT: Moist Mucous Membranes; No Jaundice
Cardiology: Normal Sinus Rhythm
Pulmonary: Clear
GI: Soft
Extremities: Pulses Present; No Edema
--- NOTE | 2025-03-10 12:01 | W.PN.HOSP.TC ---
Today's Communication/Plan
-
tolerating diet, pain improved
pending further GI recommendations
Assessment / Plan
Assessment / Plan
49yo F with PMHx of Crohns s/p resection and anastomosis came with 1 week of worsening bloating, epigastric pain and mainly nausea. Was restarted on prednisone taper 1 week before admission due to Crrohns flare. CT abd showed mild diffuse
circumferential wall thickening of the transverse colon and proximal mid descending colon suggesting colitis and thrombus formation in the superior mesenteric vein.
A/P:
#Mesenteric vein thrombosis
#Diarrhea
most likely 2/2 Crohns colitis
Patient was on Skyrizi, received last dose at the end of January, was also considered for Infliximab
Heparin drip with eventual DOAC - Rx sent to pharmacy, awaiting update on pricing
Hematology consult: APLS and baseline DDimer w/u sent
COnt Prednisone taper, add PPI
GI consult
Advance diet as tolerated
#Diverticulosis w/o diverticulitis
High fiber diet
#DJD
tylenol
PT/OT
DVT ppx on hep drip
Full code
I have spent at least 36 min reviewing chart, test results, communication with consulktants and providing direct patient care
Anticipated Discharge: 24 - 48 hours
Subjective/Interval History
-
Date of Service: March 10, 2025
Objective Data
-
Labs:
Laboratory Results
03/10/25 03/10/25
03:49 10:25
APTT 125.5 H 80.0 H
Vital Signs:
Vital Signs
Temp Pulse Resp BP Pulse Ox
97.8 F 79 14 106/68 96
03/09/25 23:03 03/09/25 23:03 03/09/25 23:03 03/09/25 23:03 03/09/25 23:03
I&O
03/09/25 03/10/25 03/11/25
06:59 06:59 06:59
Intake Total 880 / 880 1260 / 1260 116 / 116
Balance 880 / 880 1260 / 1260 116 / 116
Review of Systems
-
History Source: Patient
All other systems: Reviewed and negative
Physical Exam
-
General: No Apparent Distress
GI: Soft, Nontender and Nondistended
Musculoskeletal: No Clubbing, No Cyanosis and No Edema
Neuro: Awake, Alert, Oriented and AO x 3
Psych: Calm
[2025-03-10 15:15] VITALS: BP 110/68
--- NOTE | 2025-03-10 16:05 | W.DCSUMMARY ---
Discharge Summary
Discharge Data
Date of Admission: 03/09/25
Date of Discharge: 03/10/25
-
Pending Results: Yes
Additional Pending Results:
Lupus anticoagulant
Hospital Course
49yo F with PMHx of Crohns s/p resection and anastomosis came with 1 week of worsening bloating, epigastric pain and mainly nausea. Was restarted on prednisone taper 1 week before admission due to Crrohns flare. CT abd showed mild diffuse
circumferential wall thickening of the transverse colon and proximal mid descending colon suggesting colitis and thrombus formation in the superior mesenteric vein. Hematology recommended AC, Eliquis was prescribed and copay is $20. Patient
tolerated diet. Medically stable for d/c home on tapering steroids. Recommended to follow up with her GI. Infliximab will be contraindicated with new venous thrombosis
I have spent at least 36 min reviewing chart, test results, communication with consulktants and providing direct patient care
Patient was managed for:
#Mesenteric vein thrombosis
#Diarrhea
#Diverticulosis w/o diverticulitis
#DJD
Discharge Plan
-
Patient Disposition: Home (Routine Discharge)
Discharge Diagnosis/Procedures: Mesenteric vein thrombosis
Condition: Fair
Diet: Low Residue
Activity: As tolerated
Driving Restrictions: As prior to admission
Activity Restrictions/Additional Instructions:
Follow up with your established talent acquisition project manager [facility]
Referrals:
Braulio Cox MD [Family Provider] -
Dmitry Nelson MD [Active] - in two to four weeks
Prescriptions:
New
pantoprazole 40 mg tablet,delayed release (DR/EC)
40 mg PO DAILY Qty: 30 0RF
Eliquis 5 mg tablet
5 mg PO DIRECTED Qty: 74 0RF
Rx Instructions:
take 10mg BID for 14 doses, then 5mg BID
prednisone 5 mg tablet
5 mg PO DIRECTED Qty: 120 0RF
Rx Instructions:
take 35mg daily for 2 days, then 30mg daily and decrease by 5mg every 5 days
Continued
multivitamin Tablet
1 tab PO DAILY
Vitamin C
250 mcg PO DAILY
Rx Instructions:
2 pills
Vitamin D (with calcium)
25 mcg PO DAILY
folic acid
1 tab PO DAILY
Discontinued
famotidine [Pepcid] 20 mg Tablet
20 mg PO DAILY
prednisone
35 mg PO DAILY
Patient Comments:
suppose to take for 5 days and taper 5 mg every 5 days.
Discharge Orders:
Discharge Patient (As Directed); Ordered 03/10/25
Ordered By: Jourdan Gunn
Discharge Date and Time
Print Language: SAMMARINESE
--- NOTE | 2025-03-10 18:58 | W.PN.GI.CBS2 ---
Today's Communication / Plan
-
ok to d/c home with prednisone
Assessment / Plan
-
Pt is a 49yo with hx prior appe, jerry, and long standing crohn' s disease. In review with patient she was diagnosed with crohns disease at age 25 with periodic hospitalization thought the years and steroid use. She believes it is primary colonic
disease but does recall hx MRE in past. In 2022 she had low grade dysplastic polyp with EMR resection with Dr. Aldrich followed with concern for stricture with balloon dilation then right colectomy 04/2023 at [facility]. She has been on
multiple medication in past including Asacol, Remicade (with development of antibodies) Humira, Stelara, and recent Skyrizi since 2022. She had recent discussion with Dr. Washburn her know GI and second opinion with Dr. Roblero at [facility] with plan
to stop Skyrizi and consider Entyvio or Rinvoq. She has steroid course in December til January then restart last week with band like abdominal pain and increased stool frequency. Pain progressed with noted increased nausea with eating and she present
to for evaluation. On admission she is noted with CT with mild colitis in transverse and descending colon long with SMV thrombosis and started on Heparin. Asked to see for hx crohns.
Patient feels she is back to normal. Tolerating solid diet and denies abdominal pain. Okay to discharge home, she has follow-up arranged with her meat butcher regarding her maintenance therapy. Continue with prednisone taper. Agree with
DOAC as per hematology. GI signed off.
Total Time Spent with Patient (in minutes): 35
Subjective
Subjective
Date of Service: March 10, 2025
Feels back to normal. Denies pain.
Objective
Data Reviewed
Laboratory Data:
Laboratory Results
03/08/25 18:56
03/09/25 06:56
Laboratory Results
APTT 80.0 Sec (23.4-35.0) H 03/10/25 10:25
Magnesium 2.3 mg/dl (1.6-2.3) 03/09/25 06:56
Total Bilirubin 0.3 mg/dl (0.2-1.3) 03/08/25 18:56
AST 26 U/L (14-36) 03/08/25 18:56
ALT 34 U/L (0-35) 03/08/25 18:56
Alkaline Phosphatase 75 U/L (38-126) 03/08/25 18:56
Lipase 75 U/L (23-300) 03/08/25 18:56
Vital Signs and I&O:
Vital Signs
Temp Pulse Resp BP Pulse Ox
98.5 F 93 18 110/68 96
03/10/25 15:15 03/10/25 15:15 03/10/25 15:15 03/10/25 15:15 03/10/25 15:15
I&O
03/09/25 03/10/25 03/11/25
06:59 06:59 06:59
Intake Total 880 / 880 1260 / 1260 716 / 716
Balance 880 / 880 1260 / 1260 716 / 716
== END 2025-03-10 19:23 | disposition home or self-care (01) | DRG 385 ==
LOC: 1 ACUTE 02:08
PROVIDERS: Emergency Medicine; Physician Assistant; ADMITTING PHYSICIAN Internal Medicine; ATTENDING PHYSICIAN Internal Medicine; CONSULT PHYSICIAN Specialist; EMERGENCY PHYSICIAN Emergency Medicine; FAMILY PHYSICIAN Internal Medicine; OTHER PHYSICIAN Internal Medicine Hematology & Oncology
DX: K50.10 Crohn's disease of large intestine without complications (principal); K55.059 Acute (reversible) ischemia of intestine, part and extent unspecified; D68.62 Lupus anticoagulant syndrome; Z90.49 Acquired absence of other specified parts of digestive tract; M19.90 Unspecified osteoarthritis, unspecified site; K57.30 Diverticulosis of large intestine without perforation or abscess without bleeding; Z79.01 Long term (current) use of anticoagulants
CPT/HCPCS: 74177; 80048; 80053; 81003; 81015; 83605; 83690; 83735; 83993; 84703; 85025; 85652; 85730; 86140; 87086; 96374; 99285; Q9967